=== PATIENT | female | born 2005 | race African-American/Black ===

== ENCOUNTER 2025-09-25 17:01 | Emergency (ER) | payer OTHER, SELFPAY ==
--- OUTSIDE RECORDS SUMMARY | 2025-09-22 23:59 | XMS_ITS | Continuity of Care Document ---
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 Role Phone Nicho TROY, Adis Primary Care Physician [phone] Encounter [facility] [facility] [place] [id number] Date(s): 08/23/25 - 09/22/[address] [address]- Attending Physician: Kat Reilly Admitting Physician: Kat Reilly Referring Physician: Admtr ArAwilda Encounter Type: Triage Allergies, Adverse Reactions, Alerts Substance Criticality Severity Reaction Reaction Severity Status Strawberries unknown Active Kiwi anaphylaxis Active Aloe Vera Juice Kiwi-Ingomar throat swells Kiwi fruit Active Immunizations Given and Recorded Vaccine Date Status Refusal Reason Hepatitis A Pediatric Vaccine 1 06/06/23 Given Meningococcal Conjugate Vaccine 2 12/18/21 Given Meningococcal Conjugate Vaccine 02/14/16 Given influenza virus vaccine, inactivated 3 12/18/21 Gi mandi influenza virus vaccine, inactivated 4 12/04/18 Gi mandi influenza virus vaccine, inactivated 5 09/18/17 Gi mandi influenza virus vaccine, inactivated 10/25/16 Give n influenza virus vaccine, inactivated 02/14/16 Give n influenza virus vaccine, inactivated 08/07/15 Give n influenza virus vaccine, inactivated 10/04/13 Give n influenza virus vaccine, inactivated 09/26/11 Give n Human Papillomavirus Vaccine 6 12/04/18 Given Human Papillomavirus Vaccine 7 12/08/17 Given tetanus/diphtheria/pertussis, acel(Tdap) 02/14/16 Given influenza virus vaccine, live 09/22/12 Given Varicella Virus Vaccine 8 05/24/09 Given Varicella Virus Vaccine 02/16/08 Given Measles/Mumps/Rubella Virus Vaccine 9 05/24/09 Giv en Measles/Mumps/Rubella Virus Vaccine 02/16/08 Given Poliovirus Vaccine, Inactivated 10 05/24/09 Given Poliovirus Vaccine, Inactivated 05 Given Poliovirus Vaccine, Inactivated 05 Given Poliovirus Vaccine, Inactivated 05 Given Diphth/Tet/Pertussis, Acel (oldterm) 11 05/24/09 G iven Diphth/Pertussis,Acel/Tetanus (oldterm) 02/16/08 G iven Influenza Virus Vaccine (oldterm) 12 09/16/07 Give n Haemophilus B Conj Vaccine (oldterm) 04/10/06 Give n Haemophilus B Conj Vaccine (oldterm) 05 Give n Haemophilus B Conj Vaccine (oldterm) 05 Give n Haemophilus B Conj Vaccine (oldterm) 05 Give n Prevnar Inj (oldterm) 04/10/06 Given Prevnar Inj (oldterm) 05 Given Prevnar Inj (oldterm) 05 Given Prevnar Inj (oldterm) 05 Given diphtheria/tetanus/pertussis, acel(DTaP) 05 Given diphtheria/tetanus/pertussis, acel(DTaP) 05 Given diphtheria/tetanus/pertussis, acel(DTaP) 05 Given Hepatitis B Vaccine (old term) 05 Given Hepatitis B Vaccine (old term) 05 Given Hepatitis B Vaccine (old term) 05 Given 1Result Comment: [facility] [id number] 2Result Comment: [id number] 3Result Comment: [id number] 4Result Comment: [facility] [id number] 5Result Comment: [id number] 6Result Comment: [facility] [id number] 7Result Comment: [id number] 8Admin Note: VIS Given 9Admin Note: VIS Given 10Admin Note: VIS given 11Admin Note: VIS Given 12Admin Note: KALA SAUCEDA VIS GIVEN TODAY Medications chlorhexidine 2% topical liquid 1 application, Topically, Once, # 120 mL, 1 Refills, Soft Stop, 04/28/24 2:22:00 PM EDT, [place], [id number], Partial fill upon patient request if the prescription is for a schedule II opioid drug., 1 application Topically Once, 170, cm, 04/28/24 13:40:00 EDT, Height, 75.4, kg, 06/06/23 11:02:00 EDT, Dry Weight Start Date: 04/28/24 Status: Ordered Medication Dispense Status: Completed Quantity: 120.0 Unit: mL Total Allowed Fills: 2 Fills Dispensed: 0 fluticasone 50 mcg/inh nasal spray 1 sprays = 50 mcg, Nares, Both, 2 times a day, # 16 Gm, 0 Refills, Maintenance, 07/05/25 3:04:00 PM EDT, [place], [id number], Partial fill upon patient request if the prescription is for a schedule II opioid drug., 1 sprays Nares, Both 2 times a day, 168, cm, 07/05/25 14:48:00 EDT, Height, 81.5, kg, 05/14/25 18:55:00 EDT, Dry Weight Start Date: 07/05/25 Status: Ordered Medication Dispense Status: Completed Quantity: 16.0 Unit: g Total Allowed Fills: 1 Fills Dispensed: 0 Hibiclens 4% soap 1 applicator, Topically, Once, as directed; 1-2x a week., # 473 mL, 1 Refills, Soft Stop, 05/03/25 2:09:00 PM EDT, [id number], Partial fill upon patient request if the prescription is for a schedule II opioid drug., 1 applicator Topically Once,Instr:as directed; 1-2x a week., 170, cm, 05/03/25 13:16:00 EDT, Height, 75.4, kg, 06/06/23 11:02:00 EDT, Dry Weight Start Date: 05/03/25 Status: Ordered Medication Dispense Status: Completed Quantity: 473.0 Unit: mL Total Allowed Fills: 2 Fills Dispensed: 0 Indications: Hidradenitis suppurativa; loratadine 10 mg oral tablet 10 mg, 1, tablet, By Mouth, Daily, PRN, Take as needed for allergy/hives., # 30 tablet, Refills 0, Tot. Refills 0, Maintenance, allergy/hives, 05/03/25 2:09:00 PM EDT, Route to Pharmacy Electronically, [id number], Partial fill upon patient request if the prescription is for a schedule II opioid drug., 170, cm, 05/03/25 13:16:00 EDT, Height, 75.4, kg, 06/06/23 11:02:00 EDT, Dry Weight Start Date: 05/03/25 Stop Date: 06/02/25 Status: Ordered Medication Dispense Status: Completed Quantity: 30.0 Unit: tablet Total Allowed Fills: 1 Fills Dispensed: 0 triamcinolone 0.025% topical ointment 1 application, Topically, 3 times a day, apply a thin film, # 60 Gm, 3 Refills, Maintenance, 04/26/24 6:25:00 PM EDT, Ointment, [id number], Partial fill upon patient request if the prescription is for a schedule II opioid drug., 1 application Topically 3 times a day,Instr:apply a thin film, 170, cm, 04/05/24 12:47:00 EDT, Height, 75.4, kg, 06/06/23 11:02:00 EDT, Dry Weight Start Date: 04/26/24 Status: Ordered Medication Dispense Status: Completed Quantity: 60.0 Unit: g Total Allowed Fills: 4 Fills Dispensed: 0 Vitamin D3 1000 intl units oral capsule 1 capsule = 25 mcg, By Mouth, Daily, with food, # 90 capsule, 1 Refills, Maintenance, 05/06/25 5:18:00 PM EDT, Capsule, [id number], Partial fill upon patient request if the prescription is fora schedule II opioid drug., 170, cm, 05/03/25 13:16:00 EDT, Height, 75.4, kg, 06/06/23 11:02:00 EDT, Dry Weight Start Date: 05/06/25 Status: Ordered Medication Dispense Status: Completed Quantity: 90.0 Unit: capsule Total Allowed Fills: 2 Fills Dispensed: 0 Indications: Vitamin D deficiency, unspecified; Problem List Condition Confirmation Course Effective Dates Status H ealth Status Informant Depression Confirmed Active IUD (intrauterine device) in place Confirmed Active Rhabdomyolysis Confirmed Active Vitamin D deficiency Confirmed Active Social History Social History Type Response Smoking Status Never smoker; Tobacc o user in household: Yes; Other: mom smokes; entered on: 12/23/17 Sex Female Sex Representation Female (finding) Patient Care team information Care Team Personnel Name: Adis Torre MD Position: S Resident Member Role: PCP Address: [address] [place] [address] Telecom: Care Team Related Persons Name: MICHAEL FERRERA Name: DOREEN UGARTE Name: DOREEN UGARTE Name: CAMI ALLEN Insurance Providers Guarantor name: DOREEN UGARTE Health Plan Information #: 1 Payer: [employer] Payer Identifier: JAZZY Member Number: [id number] Group Number: [id number] Subscriber Identifier: NA Relationship to Subscriber: self Coverage Type: Medicaid (Managed Care) Coverage Verification Date: NA Telecom: JAZZY Address:
--- NOTE | ~2025-09-25 | CT_ITS ---
CLINICAL HISTORY: RLQ pain CT abdomen and pelvis with contrast Comparison: None provided Findings: LIMITED CHEST: Lung bases are clear. LIVER: No focal liver lesion. BILIARY: No gallbladder wall thickening, radiopaque stone, or ductal dilatation. PANCREAS: No mass or ductal dilatation. SPLEEN: No splenomegaly. KIDNEYS: No hydronephrosis or radiopaque stone. ADRENALS: No nodule. VASCULAR: No aneurysm. RETROPERITONEUM: No lymphadenopathy or mass. BOWEL/MESENTERY: No evidence of obstruction. No free fluid or air. Normal appendix. ABDOMINAL WALL: No mass or significant abnormality. URINARY BLADDER: No focal wall thickening. PELVIC NODES: No pelvic lymphadenopathy. PELVIC ORGANS: Normal for age. BONES: No acute fracture. OTHER: Negative. IMPRESSION: No acute findings. Normal appendix. This document has been electronically signed by: Inna Azar MD on 09/25/2025 22:21:56
[2025-09-25 17:09] VITALS: BP 101/68; PULSE 88; RESP 18; TEMP 36.6; O2SAT 99; BMI 29.0
--- NOTE | 2025-09-25 17:11 | ED_ITS ---
HPI - General Adult General Chief complaint: Abdominal Pain Stated complaint: lower abd pain Time Seen by Provider: 09/25/25 19:37 Source: patient Mode of arrival: ambulatory Limitations: no limitations History of Present Illness ED Provider: DR. Perez HPI narrative: 20-year-old female otherwise healthy came in for evaluation for right lower abdominal pain started since yesterday, patient was seen at the urgent care today was told to come to the ED for further evaluation for acute appendicitis, no nausea, no vomiting, no anorexia, no fever, no chills, no history of intra- abdominal surgical, no chance of today , no dysuria, no frequency urination, no blood in the urine, no history of ovarian cyst. Related Data Allergies Allergy/AdvReac Type Severity Reaction Status Date / Time No Known Allergies Allergy Verified 09/25/25 17:11 Review of Systems 2 Review of Systems: All other systems are reviewed and are negative Constitutional: Reports as per HPI and Reports no additional constitutional complaints Eyes: Reports as per HPI and Reports no additional eye complaints Reports system reviewed and no additional complaints, except as documented Cardiovascular: Reports as per HPI and Reports no additional cardiovascular complaints Respiratory: Reports as per HPI and Reports no additional respiratory complaints Gastrointestinal: Reports as per HPI and Reports no additional gastrointestinal complaints Genitourinary: Reports no additional female genitourinary complaints Musculoskeletal: Reports no additional musculoskeletal complaints Skin/Breast: Reports system reviewed and no additional complaints, except as docu Psychiatric: Reports no additional psychiatric complaints Endocrine: Reports no additional endocrine complaints Hematologic/Lymphatic: Reports no additional hematologic/lymphatic complaints Allergic/Immunologic: Reports no additional allergic/immunologic complaints Reports system reviewed and no additional complaints, except as documented and Reports Abnormal speech present Physical Exam ED Vital Signs: Vital Signs - 24 hr 09/25/25 17:09 09/25/25 18:49 09/25/25 22:44 Temperature 98 F 98.2 F 97.9 F Pulse Rate 88 74 72 Respiratory Rate 18 12 18 Blood Pressure 101/68 112/68 104/63 Pulse Oximetry 99 100 98 Oxygen Delivery Method Room Air Room Air Room Air BMI result Body Mass Index 29.0 Vital signs have been reviewed and appear to be correct. Blood pressure elevated. Heart rate normal. Respiratory rate normal. Temperature normal. Oxygen saturation normal. Appearance: Alert. Oriented X3. No acute distress. Head: Normal external exam. Normocephalic. Atraumatic. No Juarez signs noted. No raccoon eyes noted Eyes: PERRLA. EOMI. Conjunctiva and sclera normal. Eyelids normal. ENT: TM's Normal. Pharynx normal. Uvula midline. Moist mucous membranes. No trismus noted. No drooling noted. No muffled voice noted. Neck: Normal inspection. Neck supple. FROM. No adenopathy. Thyroid Normal. No meningeal signs. No neck mass noted. CVS: Normal heart rate and rhythm. Heart sound normal. No murmurs noted. Pulses normal throughout. Respiratory: No respiratory distress. Painless inspiration. Breath sounds normal. No wheezes/rales/rhonchi noted. Chest nontender. No accessory muscle usage noted or decreased air movement noted. Abdomen: Soft and nontender. Bowel sounds normal in all 4 quadrants. No distention noted. No organomegaly noted. No visible injury noted. Back: No CVA tenderness. Full range of motion noted. Skin: Skin warm and dry. Normal skin color. Normal skin turgor. No rashes/lesions/lacerations noted. Extremities: No lower extremity edema. Extremities exhibit normal range of motion. Extremities nontender. Neuro: Oriented X 3. Cranial nerve exam: II-XII are grossly intact No motor deficit. No sensory deficit. Reflexes normal. Course Course Course Narrative: RME: 20 yold female presents to the ED for lower abdominal pain with nausea. Patient denies any genital urinary symptoms. labs ordered Reevaluation(s) Reevaluation #1: 20-year-old female came in for right lower abdominal pain, reassuring labs and CT abdomen pelvis GI with no evidence of acute appendicitis or any other pathology. Patient feels much better, very hungry with good appetite. Time: 22:35 Medications Administered Discontinued Medications Generic Name Dose Route Start Last Admin Trade Name Freq PRN Reason Stop Dose Admin Iohexol 85 ml 09/25/25 21:27 09/25/25 21:28 Iohexol 350 Mg/Ml 100 Ml Infus..Btl IV 09/25/25 21:28 85 ml ONCE ONE Administration Medical Decision Making Differential Diagnosis Differential Diagnoses: The differential diagnosis associated with the presentation includes ( acute appendicitis, diverticulitis, colitis, ureteric stone, electrolyte derangement, severe anemia, UTI, pyelonephritis.) Admission/Observation Consideration of admission/observation: Escalation of care including admission/observation considered Lab Data MDM Lab Attestation statement: I reviewed the patient's lab results. 09/25/25 17:19 09/25/25 17:19 Labs: Lab Results 09/25/25 Range/Units 17:19 WBC 6.2 (4.8-10.8) X10*3/uL RBC 4.63 (4.20-5.50) X10*6/uL Hgb 12.7 (12.0-16.0) g/dl Hct 39.7 (37.0-47.0) % MCV 85.7 (80.0-98.0) fL MCH 27.4 (27.0-33.0) pg MCHC 32.0 (31.0-35.0) g/dl RDW 13.1 (11.0-16.0) % Plt Count 196 (160-400) X10*3/uL MPV 11.7 (9.4-12.3) fL Immature Gran % (Auto) 0.2 (0.0-0.4) % Neut % (Auto) 65.5 (45-73) % Lymph % (Auto) 28.8 (20-40) % [place] % (Auto) 4.7 (2-11) % Eos % (Auto) 0.5 (0-4) % Baso % (Auto) 0.3 (0-2) % Lymph # (Auto) 1.8 (1.2-4.9) X10*3/uL [place] # (Auto) 0.3 (0.1-1.2) X10*3/uL Eos # (Auto) 0.0 (0.0-0.4) X10*3/uL Baso # (Auto) 0.0 (0.0-0.2) X10*3/uL Abs Immat Gran (auto) 0.01 (0.00-0.03) X10*3/uL Absolute Neuts (auto) 4.1 (2.0-8.3) x10*3/uL Absolute Nucleated RBC 0.000 (0.0-0.012) X10*3/uL Nucleated RBC % (auto) 0.0 (0.0-0.2) /100WBC Sodium 138 (135-145) mmol/L Potassium 3.5 (3.3-5.1) mmol/L Chloride 105 (96-108) mmol/L Carbon Dioxide 25 (22-29) mmol/L Anion Gap 12 (12-20) BUN 12 (9-16) mg/dL Creatinine 0.74 (0.5-1.4) mg/dL Estim Creat Clear Calc 130.6 Estimated GFR > 60 Random Glucose 106 (60-115) mg/dL Calcium 9.4 (8.4-10.2) mg/dL Total Bilirubin 1.0 (0.0-1.0) mg/dL AST 26 (5-31) U/L ALT 14 (0-31) U/L Alkaline Phosphatase 62 (39-117) U/L Total Protein 7.4 (6.5-8.0) g/dL Albumin 4.7 (3.5-5.0) g/dL Lipase 15 (8-78) U/L Beta HCG, Quant < 2 mIU/mL Urine Color Yellow Urine Appearance Clear Urine pH 5.5 (5.0-9.0) Ur Specific [place] 1.015 (1.005-1.025) Urine Protein Negative (Neg-Trace) mg/dL Urine Glucose (UA) Negative (Negative) mg/dL Urine Ketones 80 (Negative) mg/dL Urine Blood Negative (Negative) Urine Nitrite Negative (Negative) Ur Leukocyte Esterase Negative (Negative) Urine Test NEGATIVE (NEGATIVE) Independent Interpretation I performed an independent interpretation of an: CT Scan ( Abdomen pelvis: No acute intra-abdominal pathology , with normal appendix.) Radiology Impression Discussion of test interpretation with radiology: I have reviewed the radiologist's reading. Discharge Plan Discharge Clinical Impression: Abdominal pain Patient Disposition: Home, Self-Care Instructions: Abdominal Pain (ED) Interventions: ED Discharge Assessment Last Done: 09/25/25 22:44 Discharge Date/Time: 09/25/25 23:12 Print Language: Taiwanese
[2025-09-25 17:25] LABS: MANUAL DIFF FLAG NO
[2025-09-25 17:26] LABS: Hematocrit 39.7 % (37.0-47.0); Hemoglobin 12.7 g/dl (12.0-16.0); Imm Gran Abs Auto 0.01 X10*3/uL (0.00-0.03); Imm Gran Pct Auto 0.2 % (0.0-0.4); Lymphocytes Absolute Auto 1.8 X10*3/uL (1.2-4.9); Mean Corpuscular HGB Conc 32.0 g/dl (31.0-35.0); Mean Corpuscular Hemoglobin 27.4 pg (27.0-33.0); Mean Corpuscular Volume 85.7 fL (80.0-98.0); NRBC Abs Auto 0.000 X10*3/uL (0.0-0.012); NRBC Pct Auto 0.0 /100WBC (0.0-0.2); Platelet Count 196 X10*3/uL (160-400); Red Blood Count 4.63 X10*6/uL (4.20-5.50); White Blood Count 6.2 X10*3/uL (4.8-10.8)
[2025-09-25 17:49] LABS: Alanine Aminotransferase 14 U/L (0-31); Albumin Level 4.7 g/dL (3.5-5.0); Alkaline Phosphatase 62 U/L (39-117); Anion Gap 12 (12-20); Aspartate Amino Transferase 26 U/L (5-31); Blood Urea Nitrogen 12 mg/dL (9-16); Calcium 9.4 mg/dL (8.4-10.2); Carbon Dioxide 25 mmol/L (22-29); Chloride 105 mmol/L (96-108); Creatinine Clr Calc Pharmacy 130.6; Estimated Glomerular Filt Rate > 60; Lipase 15 U/L (8-78); Potassium 3.5 mmol/L (3.3-5.1); Sodium 138 mmol/L (135-145); Total Protein 7.4 g/dL (6.5-8.0)
[2025-09-25 18:05] LABS: Appearance Urine Clear; Glucose Urine UA Negative (Negative); PH 5.5 (5.0-9.0); Specific Gravity - Urine 1.015 (1.005-1.025)
[2025-09-25 18:06] LABS: UPreg QC Valid YES
--- OUTSIDE RECORDS SUMMARY | 2025-09-25 18:08 | XMS_ITS | Clinical Summary ---
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 20 each 01/25/2025 Active Surgical History Surgery Date Site/Laterality Comments KNEE SURGERY Social History Tobacco Use Types Packs/Day Years Used Date Smoking Tobacco: Never Smokeless Tobacco: Never Tobacco Cessation:Counseling Given: Not Answered Alcohol Use Standard Drinks/Week Comments Not Currently 0 (1 standard drink = 0.6 oz pur e alcohol) Comments No Sex and Gender Information Value Date Recorded Sex Assigned at Female 01/11/2025 9:41 AM EST Legal Sex Female 10:19 AM EST Gender Identity Female 01/11/2025 9:41 AM EST Sexual Orientation Choose not to disclose 2024 12:55 AM EDT Obstetrics History Last Filed Vital Signs Vital Sign Reading Time Taken Comments Blood Pressure 109/76 01/25/2025 3:28 AM EDT Pulse 77 01/25/2025 3:28 AM EDT Temperature 36.7 C (98 F) 01/25/2025 3:28 AM EDT Respiratory Rate 18 01/25/2025 3:28 AM EDT Oxygen Saturation 97% 01/25/2025 3:34 AM EDT Inhaled Oxygen Concentration - - Weight 77.6 kg (171 lb) 03/10/2025 4:02 PM EDT Height 167.6 cm (5' 5.98 ) 03/10/2025 4:02 PM ED T Body Mass Index 27.61 03/10/2025 4:02 PM EDT Plan of Treatment Health Maintenance Due Date Last Done Comments Gonorrhea/Chlamydia Screening 2005 Meningococcal B Vaccine (1 of 2 - Standard) 2021 Hepatitis A Vaccines (2 of 2 - 2-dose series) 12/07/2023 06/06/2023 Annual Well Child Visit (3-21 years old) 12/16/2023 HIV Screening 12/16/2023 Hepatitis C Screening 12/16/2023 Social Influencers of Health Screening 12/16/2023 Depression Screening 11/17/2024 COVID-19 Vaccine ( season) 2025 Influenza Vaccine (#1) 2025 , 12/04/2018, 09/18/2017, Additional history exists DTaP,Tdap,and Td Vaccines (7 - Td or Tdap) 02/13/2026 02/14/2016, 05/24/2009, 02/16/2008, Additional history exists RSV Immunization Adult Patients (1 - 1-dose 75+ series) 02/11/2080 Hepatitis B Vaccines Completed 2005, 2005, 2005 HIB Vaccines Completed 04/10/2006, 09/19, 2005, Additional history exists Pneumococcal Vaccine: Pediatrics (0 to 5 Years) and At-Risk Patients (6 to 49 Years) Completed 04/10/2006, 2005, 2005, Additional history exists IPV Vaccines Completed 05/24/2009, 09/19, 2005, Additional history exists MMR Vaccines Completed 05/24/2009, 02/16/2008 Varicella Vaccines Completed 05/24/2009, 02/16/2008 HPV Vaccines Completed 12/04/2018, 12/08/2017 Meningococcal ACWY Vaccine Completed 12/18/2021, RSV Immunization Patients Under 20 months Aged Out No longer eligible based on patient's age to complete this topic Insurance [employer] [place] [employer] Care Teams Plastic Parts Fabricator Relationship Specialty Start Date End Date Physician, No Pcp PCP - General 01/15/25
[2025-09-25 18:49] VITALS: BP 112/68; PULSE 74; RESP 12; TEMP 36.8; O2SAT 100
--- NOTE | 2025-09-25 21:27 | PC.NURSE ---
Addendum entered by Nadine Sweeney RN 09/25/25 21:28: pt reports not wanting to wait for the results, she would like to go home after scan. provider aware. Original Note: IV inserted for pt, pt taken for Cat scan. pt tolerated well.
[2025-09-25 22:44] VITALS: BP 104/63; PULSE 72; RESP 18; TEMP 36.6; O2SAT 98
== END 2025-09-25 23:12 | disposition home or self-care (01) ==
PROVIDERS: Physician Assistant; Emergency Provider Emergency Medicine
DX: R10.31 Right lower quadrant pain (principal)
CPT/HCPCS: 36415; 74177; 80053; 81003; 81025; 83690; 84702; 85025; 99284; 99285; Q9967

== ENCOUNTER → 2025-09-25 19:48 | Outpatient (BNV) | payer OTHER, SELFPAY | PROVIDERS: Emergency Provider Emergency Medicine; Visit Provider Student in an Organized Health Care Education/Training Program | DX: R10.31 Right lower quadrant pain (principal) | CPT/HCPCS: 74177 ==